=== PATIENT | female | born 1955 | race Caucasian/White ===

== ENCOUNTER 2018-09-28 11:09 | Emergency (ER) | payer OTHER, SELFPAY ==
[2018-09-28 11:09] VITALS: BP 133/94; PULSE 109; RESP 20; TEMP 37.1; O2SAT 94; BMI 25.0
[2018-09-28 13:02] LABS: Add Manual Diff / Slide Review NO; Basophils Absolute Auto 0 /uL (0-100); Basophils Percent Auto 0.6 % (0-2); Eosinophils Absolute Auto 0 /uL (0-450); Eosinophils Percent Auto 0.6 % (2-4); Hematocrit 41.3 % (36-46); Lymphocytes Absolute Auto 2000 /uL (1100-4500); Lymphocytes Percent Auto 26.2 % (25-40); Mean Corpuscular HGB Conc 33.9 % (30-36); Mean Corpuscular Hemoglobin 31.1 PG (26-34); Mean Corpuscular Volume 91.8 fL (80-100); Monocytes Absolute Auto 600 /uL (0-900); Monocytes Percent Auto 7.6 % (3-14); Neutrophils Absolute Auto 4900 /uL (1500-7000); Platelet Count 298 X10^3/uL (150-400); Red Cell Distribution Width 13.4 % (11.6-14.8); White Blood Cell Count 7.5 X10^3/uL (4.5-11.0)
[2018-09-28 13:08] LABS: INR 1.1 (0.9-1.3); Prothrombin Time 12.5 SECONDS (10.1-12.7)
--- NOTE | 2018-09-28 13:08 | ED.ABDPAIN ---
HPI - Abdominal Pain <[facility] - Last Filed: 09/28/18 17:15> General Chief Complaint: Abdominal Pain Stated Complaint: Abd pain, no appetite x5d, states can feel kidneys Time Seen by Provider: 09/28/18 12:23 Source: patient Mode of arrival: ambulatory Limitations: no limitations History of Present Illness HPI narrative: Patient is a 63-year-old female every day smoker who presents with chief complaint of abdominal pain and burning stomach that has worsened since yesterday. She states she started having decreased appetite back in August, but has not followed up on it since. Since 1 day her decreased appetite and generalized stomach pain has gotten worse. She states her last bowel movement was this morning. She denies any fevers nausea vomiting or diarrhea. She has had her gallbladder removed and has a history of hepatitis C with Harvoni treatment 2 years ago. She also states that her kidneys her and she has had flank pain she denies any frequency or urgency or dysuria. She states that her stomach pain is mostly epigastric. She denies any chest pain, shortness of breath or cough or congestion. Related Data Allergies Allergy/AdvReac Type Severity Reaction Status Date / Time No Known Drug Allergies Allergy Verified 09/28/18 11:27 Review of Systems <[facility] - Last Filed: 09/28/18 17:15> Review of Systems GENERAL: Denies chills, fatigue, malaise, fever, sweats. HEENT: Denies sinus pain, ear pain, sore throat, difficulty swallowing, dizziness. RESPIRATORY: Denies dyspnea, cough, wheezing, hemoptysis, sputum. CARDIOVASCULAR: Denies chest pain, palpitations, orthopnea, edema, GASTROINTESTINAL: See HPI : See HPI MUSCULOSKELETAL: denies weakness, joint pain, or bony pain SKIN: Denies rash, skin lesions, or other NEUROLOGIC: Denies weakness, headache, numbness, change in speech, confusion, seizures, incoordination. PSYCHIATRIC: No concerning psychosocial issues. 12 point review of systems is negative except for those stated above Exam <JENNIFER Kimball - Last Filed: 09/28/18 17:15> Narrative Exam Narrative: GENERAL: This is a well-nourished, well-developed patient, in no acute distress HEAD: Atraumatic. Normocephalic. No temporal or scalp tenderness. EYES: Pupils equal round and reactive. Extraocular motions intact. No scleral icterus. No injection or drainage. ENT: Nose without bleeding, purulent drainage or septal hematoma. Throat without erythema, tonsillar hypertrophy or exudate. Uvula midline. Airway patent. NECK: Trachea midline. No JVD or lymphadenopathy. Supple, nontender, no meningeal signs. CARDIOVASCULAR: Regular rate and rhythm without murmurs, gallops, or rubs. RESPIRATORY: Clear to auscultation. Breath sounds equal bilaterally. No wheezes, rales, or rhonchi. No cough. GASTROINTESTINAL: Abdomen soft, diffusely tender upper abd, nondistended. No hepato-splenomegaly, or palpable masses. No guarding. negative hanks sign. no pain at mcburneys point. EXTREMITIES: No clubbing, cyanosis, or edema. No joint tenderness, effusion, or edema noted. BACK: Nontender without deformity or crepitance. No flank tenderness. NEURO: AOx3. SKIN: No rash or erythema. Initial Vital Signs Initial Vital Signs: Vital Signs Temperature 98.7 F 09/28/18 11:09 Pulse Rate 109 H 09/28/18 11:09 Respiratory Rate 20 09/28/18 11:09 Blood Pressure 133/94 H 09/28/18 11:09 Pulse Oximetry 94 09/28/18 11:09 <Koby Tolentino DO - Last Filed: 09/28/18 17:17> Initial Vital Signs Initial Vital Signs: Vital Signs Temperature 98.7 F 09/28/18 11:09 Pulse Rate 109 H 09/28/18 11:09 Respiratory Rate 20 09/28/18 11:09 Blood Pressure 133/94 H 09/28/18 11:09 Pulse Oximetry 94 09/28/18 11:09 Course <LOIDA Kimball-BC - Last Filed: 09/28/18 17:15> Course Narrative: I checked on the patient several times during her stay. On repeat exam at 13:30 she denies pain on exam. Her abdomen is soft and nontender to palpation on repeat exam as well as subsequent repeat exam approximately 45 min later. The patient is questioning as to why she can at 2:00 a.m. without pain, but that her to eat earlier today. She appears upset that I do not have a direct answer to this question. I discussed the possibility of acid reflux or an ulcer, and offered treatment, but she declines at this point time she does not want to take any medications. I discussed the possibility of doing a rectal exam with Hemoccult, but the patient also declined as she states there is no visible blood in her stool. I discussed that not all blood is visible, but she still declined exam. Orders Ordered: ED Orders 09/28/18 12:36 EKG-12 Lead Stat 09/28/18 12:55 Amylase Stat Complete Blood Count AUTO DIFF Stat Comprehensive Metabolic Panel Stat Lipase Stat Prothrombin Time INR Stat Troponin & CK Cardiac Panel Stat 09/28/18 14:15 Urine Microscopic Stat Discontinued Medications Al Hydrox/Mg Hydrox/Simethicone 20 ml/ Lidocaine HCl 15 ml 0 ml PO NOW ONE Stop: 09/28/18 14:12 Last Admin: 09/28/18 14:58 Dose: Not Given Sodium Chloride (Normal Saline 0.9%) 1,000 mls @ 1,000 mls/hr IV BOLUS ONE Stop: 09/28/18 13:34 Last Infusion: 09/28/18 15:16 Dose: 0 mls/hr Admin: 09/28/18 13:47 Dose: 1,000 mls/hr Pantoprazole Sodium (Protonix) 40 mg IV NOW ONE Stop: 09/28/18 14:12 Last Admin: 09/28/18 14:58 Dose: Not Given Vital Signs - 8 hr 09/28/18 11:09 09/28/18 14:04 Temperature 98.7 F Pulse Rate 109 H 59 L Respiratory Rate 20 Blood Pressure 133/94 H Blood Pressure [Left Arm] 131/72 Pulse Oximetry 94 100 <Koby Tolentino DO - Last Filed: 09/28/18 17:17> Orders Ordered: ED Orders 09/28/18 12:36 EKG-12 Lead Stat 09/28/18 12:55 Amylase Stat Complete Blood Count AUTO DIFF Stat Comprehensive Metabolic Panel Stat Lipase Stat Prothrombin Time INR Stat Troponin & CK Cardiac Panel Stat 09/28/18 14:15 Urine Microscopic Stat Discontinued Medications Al Hydrox/Mg Hydrox/Simethicone 20 ml/ Lidocaine HCl 15 ml 0 ml PO NOW ONE Stop: 09/28/18 14:12 Last Admin: 09/28/18 14:58 Dose: Not Given Sodium Chloride (Normal Saline 0.9%) 1,000 mls @ 1,000 mls/hr IV BOLUS ONE Stop: 09/28/18 13:34 Last Infusion: 09/28/18 15:16 Dose: 0 mls/hr Admin: 09/28/18 13:47 Dose: 1,000 mls/hr Pantoprazole Sodium (Protonix) 40 mg IV NOW ONE Stop: 09/28/18 14:12 Last Admin: 09/28/18 14:58 Dose: Not Given Vital Signs - 8 hr 09/28/18 11:09 09/28/18 14:04 Temperature 98.7 F Pulse Rate 109 H 59 L Respiratory Rate 20 Blood Pressure 133/94 H Blood Pressure [Left Arm] 131/72 Pulse Oximetry 94 100 MDM - Abdominal Pain <LOIDA Kimball- - Last Filed: 09/28/18 17:15> Lab Data Result diagrams: 09/28/18 12:55 09/28/18 12:55 Lab Results 09/28/18 09/28/18 09/28/18 Range/Units 12:55 12:55 12:55 WBC 7.5 (4.5-11.0) X10^3/uL RBC 4.50 (4.0-5.2) X10^6/uL Hgb 14.0 (12.0-16.0) g/dL Hct 41.3 (36-46) % MCV 91.8 (80-100) fL MCH 31.1 (26-34) PG MCHC 33.9 (30-36) % RDW 13.4 (11.6-14.8) % Plt Count 298 (150-400) X10^3/uL Neut % (Auto) 65.0 (50-75) % Lymph % (Auto) 26.2 (25-40) % Morrill % (Auto) 7.6 (3-14) % Eos % (Auto) 0.6 L (2-4) % Baso % (Auto) 0.6 (0-2) % Neut # (Auto) 4900 (9241-5947) /uL Lymph # (Auto) 2000 (9221-7416) /uL Morrill # (Auto) 600 (0-900) /uL Eos # (Auto) 0 (0-450) /uL Baso # (Auto) 0 (0-100) /uL PT (10.1-12.7) SECONDS INR (0.9-1.3) Sodium 142 (137-145) mmol/L Potassium 4.0 (3.4-5.1) mmol/L Chloride 106 (98-107) mmol/L Carbon Dioxide 25 (22-32) mmol/L BUN 15 (7-17) mg/dL Creatinine 0.60 (0.52-1.04) mg/dL Estimated GFR > 60.0 (>60) mL/min BUN/Creatinine Ratio 25.0 H (6-22) Glucose 90 (80-110) mg/dL Calcium 9.5 (8.4-10.2) mg/dL Total Bilirubin 0.3 (0.2-1.3) mg/dL AST 20 (14-36) IU/L ALT 20 (9-52) IU/L Alkaline Phosphatase 68 (38-126) U/L Total Creatine Kinase 29 L (30-135) U/L CK-MB (CK-2) TNP CK-MB (CK-2) Rel Index TNP Troponin I < 0.012 (0.01-0.034) ng/mL Total Protein 7.8 (6.3-8.2) g/dL Albumin 4.7 (3.5-5.0) g/dL Globulin 3.1 (1.7-4.1) g/dL Albumin/Globulin Ratio 1.5 (1.0-2.8) Amylase 103 (30-110) U/L Lipase 81 (23-300) U/L Urine RBC (0-5/HPF) Urine WBC (0-5/HPF) Ur Squamous Epith Cells Urine Bacteria (None) Hyaline Casts (None) Ur Culture Indicated? 09/28/18 09/28/18 Range/Units 12:55 14:15 WBC (4.5-11.0) X10^3/uL RBC (4.0-5.2) X10^6/uL Hgb (12.0-16.0) g/dL Hct (36-46) % MCV (80-100) fL MCH (26-34) PG MCHC (30-36) % RDW (11.6-14.8) % Plt Count (150-400) X10^3/uL Neut % (Auto) (50-75) % Lymph % (Auto) (25-40) % Morrill % (Auto) (3-14) % Eos % (Auto) (2-4) % Baso % (Auto) (0-2) % Neut # (Auto) (9067-7655) /uL Lymph # (Auto) (0167-8442) /uL Morrill # (Auto) (0-900) /uL Eos # (Auto) (0-450) /uL Baso # (Auto) (0-100) /uL PT 12.5 (10.1-12.7) SECONDS INR 1.1 (0.9-1.3) Sodium (137-145) mmol/L Potassium (3.4-5.1) mmol/L Chloride (98-107) mmol/L Carbon Dioxide (22-32) mmol/L BUN (7-17) mg/dL Creatinine (0.52-1.04) mg/dL Estimated GFR (>60) mL/min BUN/Creatinine Ratio (6-22) Glucose (80-110) mg/dL Calcium (8.4-10.2) mg/dL Total Bilirubin (0.2-1.3) mg/dL AST (14-36) IU/L ALT (9-52) IU/L Alkaline Phosphatase (38-126) U/L Total Creatine Kinase (30-135) U/L CK-MB (CK-2) CK-MB (CK-2) Rel Index Troponin I (0.01-0.034) ng/mL Total Protein (6.3-8.2) g/dL Albumin (3.5-5.0) g/dL Globulin (1.7-4.1) g/dL Albumin/Globulin Ratio (1.0-2.8) Amylase (30-110) U/L Lipase (23-300) U/L Urine RBC None seen (0-5/HPF) Urine WBC None seen (0-5/HPF) Ur Squamous Epith Cells 0-1 /hpf Urine Bacteria None seen (None) Hyaline Casts 1-5/lpf (None) Ur Culture Indicated? Cult not indicated Point of care testing: Urine Dip Bedside Urine Glucose Negative Bedside Urine Bilirubin - Negative Bedside Urine Ketone - Negative Urine Specific [place] 1.015 Bedside Urine Occult Blood + Bedside Urine pH 5.5 Bedside Urine Protein - Negative Bedside Urine Urobilinogen - Negative Bedside Urine Nitrite - Negative Bedside Urine Leukocytes - Negative Esterase ECG Data Attestation: I personally reviewed and interpreted this ECG as follows: Interpretation: Sinus rhythm. Ventricular rate 68. No ST elevation or depression. No ectopy noted. MDM Narrative Medical decision making narrative: Patient is a 60-year-old female who presents with chief complaint of abdominal pain. She had a normal CBC, CMP, amylase and lipase. She had a normal EKG and a negative troponin. She had a normal UA. She is hemodynamically stable, afebrile an had a relatively benign exam. Her abdominal pain ameliorated during her stay in the emergency department. I offered her further workup and medications, but the patient declined. I encouraged her to follow up with her primary care physician as soon as possible. I discussed return precautions for concern of heart attack stroke or acute etiology. She had no questions or concerns upon discharge. <Koby Tolentino, DO - Last Filed: 09/28/18 17:17> Lab Data Lab Results 09/28/18 09/28/18 09/28/18 Range/Units 12:55 12:55 12:55 WBC 7.5 (4.5-11.0) X10^3/uL RBC 4.50 (4.0-5.2) X10^6/uL Hgb 14.0 (12.0-16.0) g/dL Hct 41.3 (36-46) % MCV 91.8 (80-100) fL MCH 31.1 (26-34) PG MCHC 33.9 (30-36) % RDW 13.4 (11.6-14.8) % Plt Count 298 (150-400) X10^3/uL Neut % (Auto) 65.0 (50-75) % Lymph % (Auto) 26.2 (25-40) % Morrill % (Auto) 7.6 (3-14) % Eos % (Auto) 0.6 L (2-4) % Baso % (Auto) 0.6 (0-2) % Neut # (Auto) 4900 (7577-2376) /uL Lymph # (Auto) 2000 (7308-2460) /uL Morrill # (Auto) 600 (0-900) /uL Eos # (Auto) 0 (0-450) /uL Baso # (Auto) 0 (0-100) /uL PT (10.1-12.7) SECONDS INR (0.9-1.3) Sodium 142 (137-145) mmol/L Potassium 4.0 (3.4-5.1) mmol/L Chloride 106 (98-107) mmol/L Carbon Dioxide 25 (22-32) mmol/L BUN 15 (7-17) mg/dL Creatinine 0.60 (0.52-1.04) mg/dL Estimated GFR > 60.0 (>60) mL/min BUN/Creatinine Ratio 25.0 H (6-22) Glucose 90 (80-110) mg/dL Calcium 9.5 (8.4-10.2) mg/dL Total Bilirubin 0.3 (0.2-1.3) mg/dL AST 20 (14-36) IU/L ALT 20 (9-52) IU/L Alkaline Phosphatase 68 (38-126) U/L Total Creatine Kinase 29 L (30-135) U/L CK-MB (CK-2) TNP CK-MB (CK-2) Rel Index TNP Troponin I < 0.012 (0.01-0.034) ng/mL Total Protein 7.8 (6.3-8.2) g/dL Albumin 4.7 (3.5-5.0) g/dL Globulin 3.1 (1.7-4.1) g/dL Albumin/Globulin Ratio 1.5 (1.0-2.8) Amylase 103 (30-110) U/L Lipase 81 (23-300) U/L Urine RBC (0-5/HPF) Urine WBC (0-5/HPF) Ur Squamous Epith Cells Urine Bacteria (None) Hyaline Casts (None) Ur Culture Indicated? 09/28/18 09/28/18 Range/Units 12:55 14:15 WBC (4.5-11.0) X10^3/uL RBC (4.0-5.2) X10^6/uL Hgb (12.0-16.0) g/dL Hct (36-46) % MCV (80-100) fL MCH (26-34) PG MCHC (30-36) % RDW (11.6-14.8) % Plt Count (150-400) X10^3/uL Neut % (Auto) (50-75) % Lymph % (Auto) (25-40) % Morrill % (Auto) (3-14) % Eos % (Auto) (2-4) % Baso % (Auto) (0-2) % Neut # (Auto) (6304-6970) /uL Lymph # (Auto) (6644-6883) /uL Morrill # (Auto) (0-900) /uL Eos # (Auto) (0-450) /uL Baso # (Auto) (0-100) /uL PT 12.5 (10.1-12.7) SECONDS INR 1.1 (0.9-1.3) Sodium (137-145) mmol/L Potassium (3.4-5.1) mmol/L Chloride (98-107) mmol/L Carbon Dioxide (22-32) mmol/L BUN (7-17) mg/dL Creatinine (0.52-1.04) mg/dL Estimated GFR (>60) mL/min BUN/Creatinine Ratio (6-22) Glucose (80-110) mg/dL Calcium (8.4-10.2) mg/dL Total Bilirubin (0.2-1.3) mg/dL AST (14-36) IU/L ALT (9-52) IU/L Alkaline Phosphatase (38-126) U/L Total Creatine Kinase (30-135) U/L CK-MB (CK-2) CK-MB (CK-2) Rel Index Troponin I (0.01-0.034) ng/mL Total Protein (6.3-8.2) g/dL Albumin (3.5-5.0) g/dL Globulin (1.7-4.1) g/dL Albumin/Globulin Ratio (1.0-2.8) Amylase (30-110) U/L Lipase (23-300) U/L Urine RBC None seen (0-5/HPF) Urine WBC None seen (0-5/HPF) Ur Squamous Epith Cells 0-1 /hpf Urine Bacteria None seen (None) Hyaline Casts 1-5/lpf (None) Ur Culture Indicated? Cult not indicated Point of care testing: Urine Dip Bedside Urine Glucose Negative Bedside Urine Bilirubin - Negative Bedside Urine Ketone - Negative Urine Specific [place] 1.015 Bedside Urine Occult Blood + Bedside Urine pH 5.5 Bedside Urine Protein - Negative Bedside Urine Urobilinogen - Negative Bedside Urine Nitrite - Negative Bedside Urine Leukocytes - Negative Esterase Discharge Plan Departure Patient Disposition: Home Clinical Impression: Abdominal pain Discharge Date/Time: 09/28/18 15:30 Interventions: ED Discharge Assessment Last Done: 09/28/18 15:29 Instructions: DI for Abdominal Pain-Adult Activity Restrictions/Additional Instructions: Your lab work and urine came back normal today. Your pain disappeared why her stay in the emergency department. Please follow-up with primary care provider in the next few days. Come back to emergency department for any acute concerns such as shortness of breath or chest pain. I would eat a simple diet including a lack of caffeine, lack of fried foods, lack of fatty foods, lack of spicey or citrus foods, and lack of coffee. Try bland foods and see if it helps her stomach. Referrals: João Malik MD [Non-Staff] - <Koby Tolentino DO - Last Filed: 09/28/18 17:17> Cosign ED Attending Nadege Attestation: I was available for consultation during this patient's emergency department encounter
[2018-09-28 13:12] LABS: Creatine Kinase 29 U/L (30-135)
[2018-09-28 13:14] LABS: Alanine Aminotransferase 20 IU/L (9-52); Albumin 4.7 g/dL (3.5-5.0); Albumin Globulin Ratio 1.5 (1.0-2.8); Alkaline Phosphatase 68 U/L (38-126); Amylase 103 U/L (30-110); Aspartate Aminotransferase 20 IU/L (14-36); Bilirubin Total 0.3 mg/dL (0.2-1.3); Blood Urea Nitrogen 15 mg/dL (7-17); Calcium 9.5 mg/dL (8.4-10.2); Carbon Dioxide 25 mmol/L (22-32); Chloride 106 mmol/L (98-107); Estimated Glomerular Filt Rate > 60.0 mL/min (>60); Globulin 3.1 g/dL (1.7-4.1); Glucose 90 mg/dL (80-110); HEMOLYSIS 29 (0-50); Lipase 81 U/L (23-300); Sodium 142 mmol/L (137-145); Total Protein 7.8 g/dL (6.3-8.2)
--- NOTE | 2018-09-28 13:14 | ED_ITS ---
HPI - Abdominal Pain <[facility] - Last Filed: 09/28/18 17:15> General Chief Complaint: Abdominal Pain Stated Complaint: Abd pain, no appetite x5d, states can feel kidneys Time Seen by Provider: 09/28/18 12:23 Source: patient Mode of arrival: ambulatory Limitations: no limitations History of Present Illness HPI narrative: Patient is a 63-year-old female every day smoker who presents with chief complaint of abdominal pain and burning stomach that has worsened since yesterday. She states she started having decreased appetite back in August, but has not followed up on it since. Since 1 day her decreased appetite and generalized stomach pain has gotten worse. She states her last bowel movement was this morning. She denies any fevers nausea vomiting or diarrhea. She has had her gallbladder removed and has a history of hepatitis C with Harvoni treatment 2 years ago. She also states that her kidneys her and she has had flank pain she denies any frequency or urgency or dysuria. She states that her stomach pain is mostly epigastric. She denies any chest pain, shortness of breath or cough or congestion. Related Data Allergies Allergy/AdvReac Type Severity Reaction Status Date / Time No Known Drug Allergies Allergy Verified 09/28/18 11:27 Review of Systems <[facility] - Last Filed: 09/28/18 17:15> Review of Systems GENERAL: Denies chills, fatigue, malaise, fever, sweats. HEENT: Denies sinus pain, ear pain, sore throat, difficulty swallowing, dizziness. RESPIRATORY: Denies dyspnea, cough, wheezing, hemoptysis, sputum. CARDIOVASCULAR: Denies chest pain, palpitations, orthopnea, edema, GASTROINTESTINAL: See HPI : See HPI MUSCULOSKELETAL: denies weakness, joint pain, or bony pain SKIN: Denies rash, skin lesions, or other NEUROLOGIC: Denies weakness, headache, numbness, change in speech, confusion, seizures, incoordination. PSYCHIATRIC: No concerning psychosocial issues. 12 point review of systems is negative except for those stated above Exam <JENNIFER Kimball - Last Filed: 09/28/18 17:15> Narrative Exam Narrative: GENERAL: This is a well-nourished, well-developed patient, in no acute distress HEAD: Atraumatic. Normocephalic. No temporal or scalp tenderness. EYES: Pupils equal round and reactive. Extraocular motions intact. No scleral icterus. No injection or drainage. ENT: Nose without bleeding, purulent drainage or septal hematoma. Throat without erythema, tonsillar hypertrophy or exudate. Uvula midline. Airway patent. NECK: Trachea midline. No JVD or lymphadenopathy. Supple, nontender, no meningeal signs. CARDIOVASCULAR: Regular rate and rhythm without murmurs, gallops, or rubs. RESPIRATORY: Clear to auscultation. Breath sounds equal bilaterally. No wheezes , rales, or rhonchi. No cough. GASTROINTESTINAL: Abdomen soft, diffusely tender upper abd, nondistended. No hepato-splenomegaly, or palpable masses. No guarding. negative hanks sign. no pain at mcburneys point. EXTREMITIES: No clubbing, cyanosis, or edema. No joint tenderness, effusion, or edema noted. BACK: Nontender without deformity or crepitance. No flank tenderness. NEURO: AOx3. SKIN: No rash or erythema. Initial Vital Signs Initial Vital Signs: Vital Signs Temperature 98.7 F 09/28/18 11:09 Pulse Rate 109 H 09/28/18 11:09 Respiratory Rate 20 09/28/18 11:09 Blood Pressure 133/94 H 09/28/18 11:09 Pulse Oximetry 94 09/28/18 11:09 <Koby Tolentino DO - Last Filed: 09/28/18 17:17> Initial Vital Signs Initial Vital Signs: Vital Signs Temperature 98.7 F 09/28/18 11:09 Pulse Rate 109 H 09/28/18 11:09 Respiratory Rate 20 09/28/18 11:09 Blood Pressure 133/94 H 09/28/18 11:09 Pulse Oximetry 94 09/28/18 11:09 Course <LOIDA Kimball-BC - Last Filed: 09/28/18 17:15> Course Narrative: I checked on the patient several times during her stay. On repeat exam at 13:30 she denies pain on exam. Her abdomen is soft and nontender to palpation on repeat exam as well as subsequent repeat exam approximately 45 min later. The patient is questioning as to why she can at 2: 00 a.m. without pain, but that her to eat earlier today. She appears upset that I do not have a direct answer to this question. I discussed the possibility of acid reflux or an ulcer, and offered treatment, but she declines at this point time she does not want to take any medications. I discussed the possibility of doing a rectal exam with Hemoccult, but the patient also declined as she states there is no visible blood in her stool. I discussed that not all blood is visible, but she still declined exam. Orders Ordered: ED Orders 09/28/18 12:36 EKG-12 Lead Stat 09/28/18 12:55 Amylase Stat Complete Blood Count AUTO DIFF Stat Comprehensive Metabolic Panel Stat Lipase Stat Prothrombin Time INR Stat Troponin & CK Cardiac Panel Stat 09/28/18 14:15 Urine Microscopic Stat Discontinued Medications Al Hydrox/Mg Hydrox/Simethicone 20 ml/ Lidocaine HCl 15 ml 0 ml PO NOW ONE Stop: 09/28/18 14:12 Last Admin: 09/28/18 14:58 Dose: Not Given Sodium Chloride (Normal Saline 0.9%) 1,000 mls @ 1,000 mls/hr IV BOLUS ONE Stop: 09/28/18 13:34 Last Infusion: 09/28/18 15:16 Dose: 0 mls/hr Admin: 09/28/18 13:47 Dose: 1,000 mls/hr Pantoprazole Sodium (Protonix) 40 mg IV NOW ONE Stop: 09/28/18 14:12 Last Admin: 09/28/18 14:58 Dose: Not Given Vital Signs - 8 hr 09/28/18 11:09 09/28/18 14:04 Temperature 98.7 F Pulse Rate 109 H 59 L Respiratory Rate 20 Blood Pressure 133/94 H Blood Pressure [Left Arm] 131/72 Pulse Oximetry 94 100 <Koby Tolentino DO - Last Filed: 09/28/18 17:17> Orders Ordered: ED Orders 09/28/18 12:36 EKG-12 Lead Stat 09/28/18 12:55 Amylase Stat Complete Blood Count AUTO DIFF Stat Comprehensive Metabolic Panel Stat Lipase Stat Prothrombin Time INR Stat Troponin & CK Cardiac Panel Stat 09/28/18 14:15 Urine Microscopic Stat Discontinued Medications Al Hydrox/Mg Hydrox/Simethicone 20 ml/ Lidocaine HCl 15 ml 0 ml PO NOW ONE Stop: 09/28/18 14:12 Last Admin: 09/28/18 14:58 Dose: Not Given Sodium Chloride (Normal Saline 0.9%) 1,000 mls @ 1,000 mls/hr IV BOLUS ONE Stop: 09/28/18 13:34 Last Infusion: 09/28/18 15:16 Dose: 0 mls/hr Admin: 09/28/18 13:47 Dose: 1,000 mls/hr Pantoprazole Sodium (Protonix) 40 mg IV NOW ONE Stop: 09/28/18 14:12 Last Admin: 09/28/18 14:58 Dose: Not Given Vital Signs - 8 hr 09/28/18 11:09 09/28/18 14:04 Temperature 98.7 F Pulse Rate 109 H 59 L Respiratory Rate 20 Blood Pressure 133/94 H Blood Pressure [Left Arm] 131/72 Pulse Oximetry 94 100 MDM - Abdominal Pain <LOIDA Kimball- - Last Filed: 09/28/18 17:15> Lab Data Result diagrams: 09/28/18 12:55 09/28/18 12:55 Lab Results 09/28/18 09/28/18 09/28/18 Range/Units 12:55 12:55 12:55 WBC 7.5 (4.5-11.0) X10^3/uL RBC 4.50 (4.0-5.2) X10^6/uL Hgb 14.0 (12.0-16.0) g/dL Hct 41.3 (36-46) % MCV 91.8 (80-100) fL MCH 31.1 (26-34) PG MCHC 33.9 (30-36) % RDW 13.4 (11.6-14.8) % Plt Count 298 (150-400) X10^3/uL Neut % (Auto) 65.0 (50-75) % Lymph % (Auto) 26.2 (25-40) % [place] % (Auto) 7.6 (3-14) % Eos % (Auto) 0.6 L (2-4) % Baso % (Auto) 0.6 (0-2) % Neut # (Auto) 4900 (4408-7584) /uL Lymph # (Auto) 2000 (7888-5795) /uL [place] # (Auto) 600 (0-900) /uL Eos # (Auto) 0 (0-450) /uL Baso # (Auto) 0 (0-100) /uL PT (10.1-12.7) SECONDS INR (0.9-1.3) Sodium 142 (137-145) mmol/L Potassium 4.0 (3.4-5.1) mmol/L Chloride 106 (98-107) mmol/L Carbon Dioxide 25 (22-32) mmol/L BUN 15 (7-17) mg/dL Creatinine 0.60 (0.52-1.04) mg/dL Estimated GFR > 60.0 (>60) mL/min BUN/Creatinine Ratio 25.0 H (6-22) Glucose 90 (80-110) mg/dL Calcium 9.5 (8.4-10.2) mg/dL Total Bilirubin 0.3 (0.2-1.3) mg/dL AST 20 (14-36) IU/L ALT 20 (9-52) IU/L Alkaline Phosphatase 68 (38-126) U/L Total Creatine Kinase 29 L (30-135) U/L CK-MB (CK-2) TNP CK-MB (CK-2) Rel Index TNP Troponin I < 0.012 (0.01-0.034) ng/mL Total Protein 7.8 (6.3-8.2) g/dL Albumin 4.7 (3.5-5.0) g/dL Globulin 3.1 (1.7-4.1) g/dL Albumin/Globulin Ratio 1.5 (1.0-2.8) Amylase 103 (30-110) U/L Lipase 81 (23-300) U/L Urine RBC (0-5/HPF) Urine WBC (0-5/HPF) Ur Squamous Epith Cells Urine Bacteria (None) Hyaline Casts (None) Ur Culture Indicated? 09/28/18 09/28/18 Range/Units 12:55 14:15 WBC (4.5-11.0) X10^3/uL RBC (4.0-5.2) X10^6/uL Hgb (12.0-16.0) g/dL Hct (36-46) % MCV (80-100) fL MCH (26-34) PG MCHC (30-36) % RDW (11.6-14.8) % Plt Count (150-400) X10^3/uL Neut % (Auto) (50-75) % Lymph % (Auto) (25-40) % [place] % (Auto) (3-14) % Eos % (Auto) (2-4) % Baso % (Auto) (0-2) % Neut # (Auto) (8478-0588) /uL Lymph # (Auto) (2890-6411) /uL [place] # (Auto) (0-900) /uL Eos # (Auto) (0-450) /uL Baso # (Auto) (0-100) /uL PT 12.5 (10.1-12.7) SECONDS INR 1.1 (0.9-1.3) Sodium (137-145) mmol/L Potassium (3.4-5.1) mmol/L Chloride (98-107) mmol/L Carbon Dioxide (22-32) mmol/L BUN (7-17) mg/dL Creatinine (0.52-1.04) mg/dL Estimated GFR (>60) mL/min BUN/Creatinine Ratio (6-22) Glucose (80-110) mg/dL Calcium (8.4-10.2) mg/dL Total Bilirubin (0.2-1.3) mg/dL AST (14-36) IU/L ALT (9-52) IU/L Alkaline Phosphatase (38-126) U/L Total Creatine Kinase (30-135) U/L CK-MB (CK-2) CK-MB (CK-2) Rel Index Troponin I (0.01-0.034) ng/mL Total Protein (6.3-8.2) g/dL Albumin (3.5-5.0) g/dL Globulin (1.7-4.1) g/dL Albumin/Globulin Ratio (1.0-2.8) Amylase (30-110) U/L Lipase (23-300) U/L Urine RBC None seen (0-5/HPF) Urine WBC None seen (0-5/HPF) Ur Squamous Epith Cells 0-1 /hpf Urine Bacteria None seen (None) Hyaline Casts 1-5/lpf (None) Ur Culture Indicated? Cult not indicated Point of care testing: Urine Dip Bedside Urine Glucose Negative Bedside Urine Bilirubin - Negative Bedside Urine Ketone - Negative Urine Specific [place] 1.015 Bedside Urine Occult Blood + Bedside Urine pH 5.5 Bedside Urine Protein - Negative Bedside Urine Urobilinogen - Negative Bedside Urine Nitrite - Negative Bedside Urine Leukocytes - Negative Esterase ECG Data Attestation: I personally reviewed and interpreted this ECG as follows: Interpretation: Sinus rhythm. Ventricular rate 68. No ST elevation or depression. No ectopy noted. MDM Narrative Medical decision making narrative: Patient is a 60-year-old female who presents with chief complaint of abdominal pain. She had a normal CBC, CMP, amylase and lipase. She had a normal EKG and a negative troponin. She had a normal UA. She is hemodynamically stable, afebrile an had a relatively benign exam. Her abdominal pain ameliorated during her stay in the emergency department. I offered her further workup and medications, but the patient declined. I encouraged her to follow up with her primary care physician as soon as possible. I discussed return precautions for concern of heart attack stroke or acute etiology. She had no questions or concerns upon discharge. <Koby Tolentino, DO - Last Filed: 09/28/18 17:17> Lab Data Lab Results 09/28/18 09/28/18 09/28/18 Range/Units 12:55 12:55 12:55 WBC 7.5 (4.5-11.0) X10^3/uL RBC 4.50 (4.0-5.2) X10^6/uL Hgb 14.0 (12.0-16.0) g/dL Hct 41.3 (36-46) % MCV 91.8 (80-100) fL MCH 31.1 (26-34) PG MCHC 33.9 (30-36) % RDW 13.4 (11.6-14.8) % Plt Count 298 (150-400) X10^3/uL Neut % (Auto) 65.0 (50-75) % Lymph % (Auto) 26.2 (25-40) % [place] % (Auto) 7.6 (3-14) % Eos % (Auto) 0.6 L (2-4) % Baso % (Auto) 0.6 (0-2) % Neut # (Auto) 4900 (2954-6279) /uL Lymph # (Auto) 2000 (9726-9659) /uL [place] # (Auto) 600 (0-900) /uL Eos # (Auto) 0 (0-450) /uL Baso # (Auto) 0 (0-100) /uL PT (10.1-12.7) SECONDS INR (0.9-1.3) Sodium 142 (137-145) mmol/L Potassium 4.0 (3.4-5.1) mmol/L Chloride 106 (98-107) mmol/L Carbon Dioxide 25 (22-32) mmol/L BUN 15 (7-17) mg/dL Creatinine 0.60 (0.52-1.04) mg/dL Estimated GFR > 60.0 (>60) mL/min BUN/Creatinine Ratio 25.0 H (6-22) Glucose 90 (80-110) mg/dL Calcium 9.5 (8.4-10.2) mg/dL Total Bilirubin 0.3 (0.2-1.3) mg/dL AST 20 (14-36) IU/L ALT 20 (9-52) IU/L Alkaline Phosphatase 68 (38-126) U/L Total Creatine Kinase 29 L (30-135) U/L CK-MB (CK-2) TNP CK-MB (CK-2) Rel Index TNP Troponin I < 0.012 (0.01-0.034) ng/mL Total Protein 7.8 (6.3-8.2) g/dL Albumin 4.7 (3.5-5.0) g/dL Globulin 3.1 (1.7-4.1) g/dL Albumin/Globulin Ratio 1.5 (1.0-2.8) Amylase 103 (30-110) U/L Lipase 81 (23-300) U/L Urine RBC (0-5/HPF) Urine WBC (0-5/HPF) Ur Squamous Epith Cells Urine Bacteria (None) Hyaline Casts (None) Ur Culture Indicated? 09/28/18 09/28/18 Range/Units 12:55 14:15 WBC (4.5-11.0) X10^3/uL RBC (4.0-5.2) X10^6/uL Hgb (12.0-16.0) g/dL Hct (36-46) % MCV (80-100) fL MCH (26-34) PG MCHC (30-36) % RDW (11.6-14.8) % Plt Count (150-400) X10^3/uL Neut % (Auto) (50-75) % Lymph % (Auto) (25-40) % [place] % (Auto) (3-14) % Eos % (Auto) (2-4) % Baso % (Auto) (0-2) % Neut # (Auto) (5622-2302) /uL Lymph # (Auto) (9215-1753) /uL [place] # (Auto) (0-900) /uL Eos # (Auto) (0-450) /uL Baso # (Auto) (0-100) /uL PT 12.5 (10.1-12.7) SECONDS INR 1.1 (0.9-1.3) Sodium (137-145) mmol/L Potassium (3.4-5.1) mmol/L Chloride (98-107) mmol/L Carbon Dioxide (22-32) mmol/L BUN (7-17) mg/dL Creatinine (0.52-1.04) mg/dL Estimated GFR (>60) mL/min BUN/Creatinine Ratio (6-22) Glucose (80-110) mg/dL Calcium (8.4-10.2) mg/dL Total Bilirubin (0.2-1.3) mg/dL AST (14-36) IU/L ALT (9-52) IU/L Alkaline Phosphatase (38-126) U/L Total Creatine Kinase (30-135) U/L CK-MB (CK-2) CK-MB (CK-2) Rel Index Troponin I (0.01-0.034) ng/mL Total Protein (6.3-8.2) g/dL Albumin (3.5-5.0) g/dL Globulin (1.7-4.1) g/dL Albumin/Globulin Ratio (1.0-2.8) Amylase (30-110) U/L Lipase (23-300) U/L Urine RBC None seen (0-5/HPF) Urine WBC None seen (0-5/HPF) Ur Squamous Epith Cells 0-1 /hpf Urine Bacteria None seen (None) Hyaline Casts 1-5/lpf (None) Ur Culture Indicated? Cult not indicated Point of care testing: Urine Dip Bedside Urine Glucose Negative Bedside Urine Bilirubin - Negative Bedside Urine Ketone - Negative Urine Specific [place] 1.015 Bedside Urine Occult Blood + Bedside Urine pH 5.5 Bedside Urine Protein - Negative Bedside Urine Urobilinogen - Negative Bedside Urine Nitrite - Negative Bedside Urine Leukocytes - Negative Esterase Discharge Plan Departure Patient Disposition: Home Clinical Impression: Abdominal pain Discharge Date/Time: 09/28/18 15:30 Interventions: ED Discharge Assessment Last Done: 09/28/18 15:29 Instructions: DI for Abdominal Pain-Adult Activity Restrictions/Additional Instructions: Your lab work and urine came back normal today. Your pain disappeared why her stay in the emergency department. Please follow-up with primary care provider in the next few days. Come back to emergency department for any acute concerns such as shortness of breath or chest pain. I would eat a simple diet including a lack of caffeine, lack of fried foods, lack of fatty foods, lack of spicey or citrus foods, and lack of coffee. Try bland foods and see if it helps her stomach. Referrals: João Malik MD [Non-Staff] - <Koby Tolentino DO - Last Filed: 09/28/18 17:17> Cosign ED Attending Nadege Attestation: I was available for consultation during this patient's emergency department encounter
[2018-09-28 13:24] LABS: Troponin I < 0.012 ng/mL (0.01-0.034)
[2018-09-28] MEDS: SODIUM CHLORIDE 0.9% 1,000 ML 1000 ML IV (13:47)
[2018-09-28 14:04] VITALS: BP 131/72; PULSE 59; O2SAT 100
[2018-09-28 14:19] LABS: Bacteria Urine None Seen; RBC Urine None Seen (0-5/HPF); WBC Urine None Seen (0-5/HPF)
[2018-09-28 14:41] LABS: Culture Indicated Urine Cult Not Indicated; Hyaline Casts Urine 1-5/LPF; Squamous Epithelial Cell Urine 0-1 /HPF
== END 2018-09-28 15:30 | disposition home or self-care (01) ==
PROVIDERS: Emergency Provider Nurse Practitioner Family
DX: R10.9 Unspecified abdominal pain (principal)
CPT/HCPCS: 80053; 81003; 81015; 82150; 82550; 83690; 84484; 85025; 85610; 93005; 96360; 99283; 99284